=== PATIENT | male | born 1940 | race Caucasian/White ===

== ENCOUNTER 2017-09-26 06:11 | Inpatient (IN) | payer MEDICARE ==
[2017-09-26] VITALS (13 sets, daily range): BP systolic 128–153; BP diastolic 76–85; PULSE 52–78; RESP 19–20; TEMP 97.8–98.5; O2SAT 96–100
[~2017-09-26] VITALS: Ht 177.8 cm; Wt 63.0 kg
[2017-09-26] MEDS: CHLORHEXIDINE GLUCONATE 2 % 1 PACK (2 CLOTHS) TOPICAL PRN (06:00)
[2017-09-26] MEDS ORDERED: ASPI-516 CHEW (06:45)
[2017-09-26] MEDS ORDERED: MAGN500T2 PO (06:45)
[2017-09-26] MEDS ORDERED: VITA100T65 PO (06:45)
[2017-09-26] MEDS ORDERED: APIX5TAB PO (06:45)
[2017-09-26] MEDS ORDERED: LISI-519 PO (06:45)
[2017-09-26] MEDS ORDERED: OCUVTAB4 PO (06:45)
[2017-09-26] MEDS ORDERED: GLUC500T4 PO (06:45)
[2017-09-26] MEDS ORDERED: TAMS0.4C4 (06:45)
[2017-09-26] MEDS ORDERED: FERR325T18 PO (06:45)
[2017-09-26] MEDS ORDERED: MULTTAB67 PO (06:45)
[2017-09-26] MEDS ORDERED: CARV3.12 PO (06:45)
[2017-09-26] MEDS ORDERED: ATOR40TA16 PO (06:45)
[2017-09-26] MEDS ORDERED: NEXI40CA PO (06:45)
[2017-09-26] MEDS ORDERED: ceFAZolin 2 GM PREMIX 50 ML IV SCH (07:45)
[2017-09-26] MEDS ORDERED: METOPROLOL TARTRATE 25 MG TAB PO SCH (07:45)
[2017-09-26] MEDS ORDERED: PAPAVERINE 60 MG-NITROGLYCERIN 100 MCG-DILTIAZEM 100 MG in NS 100 ML IRRIGATION SCH ×4 (07:45)
[2017-09-26] MEDS ORDERED: POVIDONE IODINE 5% (ANTISEPSIS KIT) 4 APPLICATIONS EACH NARE PRN (07:45)
[2017-09-26] MEDS ORDERED: PAPAVERINE INJ 60 MG, NITROGLYCERIN INJ 100 MCG, VERAPAMIL INJ 100 MG in SODIUM CHLORID... IRRIGATION SCH (07:45)
[2017-09-26] MEDS ORDERED: INSULIN REGULAR 100 UNITS in NS 100 ML IV PRN (07:45)
[2017-09-26] MEDS ORDERED: CEFAZOLIN 500 MG in NS IRR BTL 500 ML IRRIGATION SCH (07:45)
[2017-09-26] MEDS ORDERED: LACTATED RINGER'S 1000 ML IV PRN (07:45)
[2017-09-26] MEDS ORDERED: METOPROLOL TARTRATE 25 MG TAB PO PRN (07:45)
[2017-09-26] MEDS ORDERED: CHLORHEXIDINE GLUCONATE 4% SOLN 120 ML BTL TOPICAL SCH (07:45)
[2017-09-26] MEDS ORDERED: SODIUM CHLORID 0.9% 500 ML IV PRN (07:45)
[2017-09-26] MEDS ORDERED: INSULIN HUMAN REGULAR 1,000 UNITS/10 ML VIAL SQ PRN (07:45)
[2017-09-26] MEDS ORDERED: fentaNYL CITRATE 250 MCG/5 ML AMP ONE (07:53)
[2017-09-26] MEDS ORDERED: MIDAZOLAM HCL 5 MG/ML VIAL (1 ML) ONE (07:53)
[2017-09-26] MEDS ORDERED: HEPARIN SODIUM - SQ 10,000 UNITS/ML VIAL ONE (08:00)
[2017-09-26] MEDS ORDERED: VANCOMYCIN HCL 1000 MG VIAL ONE (08:01)
[2017-09-26] MEDS ORDERED: ceFAZolin 2 GM PREMIX 0 ML ONE (08:01)
--- NOTE | 2017-09-26 08:01 | PD.CAR.PN ---
CVT Progress Note Subjective/Hospital Course: 77/ male seen in clinic by Dr Herrmann , presented with episode of syncope . Underwent evaluation including echo which revealed moderate mitral insuff, severe LV dysfunction with EF 30%. Cardiac cath showed patent stent in LCX critical stenosis of the LAD and RCA PMH: Afib, anemia , BPH, CHF, COPD, GERD, HTN, Hypothyroidism pt electively admitted for MVR/ CABG Objective: Vital Signs Date Time Temp Pulse Resp B/P (MAP) Pulse Ox O2 Delivery O2 Flow Rate FiO2 09/26/17 07:17 97.9 62 24 153/81 (105) 100 Jo Schilling Sep 26, 2017 08:01
[2017-09-26] MEDS ORDERED: CUSTODIOL HTK IRR SOLN 2,000 ML ONE (08:34)
[2017-09-26] MEDS ORDERED: MANNITOL INJ 100 ML ONE (08:35)
[2017-09-26] MEDS ORDERED: SODIUM BICARBONATE 8.4% INJ 100 ML ONE (08:35)
[2017-09-26] MEDS ORDERED: HEPARIN SODIUM - IV 10,000 UNITS/10 ML VIAL ONE (08:36)
[2017-09-26] MEDS ORDERED: ALBUMIN 25% INJ 50 ML IV ONE (08:36)
[2017-09-26] MEDS ORDERED: CALCIUM CHLORIDE 10% SOLN 1 GRAM/10 ML SYR ONE (08:36)
[2017-09-26] MEDS ORDERED: SUGAMMADEX SODIUM 200 MG/2 ML VIAL IV PUSH ONE (09:52)
[2017-09-26] MEDS ORDERED: DO NOT ADM ANY ANTICOAGULANT DRUGS PRN (10:11)
[2017-09-26] MEDS ORDERED: SOD PHOSPHATE/SOD BIPHOSPHATE (ADULT) ENEMA 133ML RECTAL PRN (10:30)
[2017-09-26] MEDS ORDERED: GLUCAGON 1 MG/ML VIAL OTHER PRN (10:30)
[2017-09-26] MEDS ORDERED: BISACODYL 10 MG SUPP RECTAL PRN (10:30)
[2017-09-26] MEDS ORDERED: DEXTROSE 50% IN WATER 50 ML VIAL(D50) IV PUSH PRN (10:30)
--- NOTE | 2017-09-26 10:38 | PD.OP ---
cc: Rafael Herrmann MD Operative Report Date of Surgery: Sep 26, 2017 Preoperative Diagnosis: Postoperative Diagnosis: Procedure: 1. Aborted Mitral/CABG Procedure 2. Transthoracic ECHO Surgeon: Rafael Herrmann Auditing Coder(s): A Wesley Operation and Findings: PREPROCEDURE DIAGNOSES 1. Moderate Mitral Insufficiency 2. Coronary Artery Disease 3. Moderate left Ventricular Dysfunction POSTPROCEDURE DIAGNOSES 1. Mild Mitral Insufficiency 2. Coronary Artery Disease 3. Moderate left Ventricular Dysfunction 4. Esophageal Stricture SURGICAL PROCEDURE 1. Aborted Mitral/CABG Procedure 2. Transthoracic ECHO SURGEON Rafael Herrmann MD TOOL MACHINE SET UP OPERATOR Pepper Guzmán, PAC ANESTHESIA General endotracheal OUTSIDE PRODUCTION INSPECTOR Ajay Fraire, ACCOUNTING SYSTEM EXPERT Jose Hall MD PREPARATION [employer]. COUNTS Needle, sponge, and instrument counts were correct. DRAINS None COMPLICATIONS None. INDICATIONS FOR PROCEDURE The patient is a 77-year-old male presenting with syncope. Patient was noted to have two-vessel coronary artery disease and MR. The patient is being brought to the operating room for surgical therapy. PROCEDURE Patient was brought to the operating room and placed supine on the OR table. Following the induction of adequate general endotracheal anesthesia and placement of appropriate monitoring devices, intraoperative JOSE was attempted without success. It appears that the patient has an esophageal stricture. We were able to pass an orogastric tube with aspiration of bilious contents, but unable to advance the JOSE probe into the esophagus. A transthoracic ECHO was then performed by Dr. Jake Vaca. ECHO revealed mild to moderate MR with no pulmonary vein reversal of flow by doppler analysis. The left atrium was also noted to be of normal dimensions, measuring 4.5 cm in greatest dimension. Given the above findings, his significant frailty and the fact that the LAD is easily stentable, I decided to have a lengthy conversation with the patient's and son. They both agreed to stop the operation at this point to further discuss the options with him and likely proceed with PCI to the LAD and possibly RCA. No incision was made and the patient was awaken from general anesthesia and transferred to the PACU in stable condition. Rafael Herrmann MD Sep 26, 2017 10:38
[2017-09-26] MEDS ORDERED: SODIUM BICARBONATE 8.4% INJ 50 MEQ/50 ML SYR IV ONE (12:00)
[2017-09-26] MEDS ORDERED: PHENYLEPH/NS 1000 MCG/10 ML SYR IV ONE (12:00)
[2017-09-26] MEDS ORDERED: TRANEXAMIC ACID INJ 1,000 MG/10 ML AMP IV ONE (12:00)
[2017-09-26] MEDS ORDERED: MAGNESIUM SULFATE 1 GM/2 ML VIAL IV ONE (12:00)
[2017-09-26] MEDS ORDERED: CALCIUM CHLORIDE 10% SOLN 1 GRAM/10 ML SYR IV ONE (12:00)
[2017-09-26] MEDS ORDERED: PHENYLEPHRINE HCL 10 MG/ML VIAL IV ONE (12:00)
[2017-09-26] MEDS ORDERED: DOPamine 800 MG/500 ML INJ 500 ML IV ONE (12:00)
[2017-09-26] MEDS ORDERED: LIDOCAINE HCL 1% PF 5 ML SYRINGE OTHER ONE (12:00)
[2017-09-26] MEDS ORDERED: VECURONIUM BROMIDE 10 MG VIAL IV ONE (12:00)
[2017-09-26 13:49] LABS: HEMATOCRIT 31.4 % (39.0-51.0); HEMOGLOBIN 10.8 GM/DL (13.0-17.0); MEAN CORPUSCULAR HEMOGLOBIN 32.4 PG (27.0-34.0); MEAN CORPUSCULAR HGB CONC 34.5 % (32.0-36.0); MEAN PLATELET VOLUME 7.6 FL (7.0-11.0); PLATELET COUNT 364 TH/MM3 (150-450); RED BLOOD COUNT 3.34 MIL/MM3 (4.50-5.90); RED CELL DISTRIBUTION WIDTH 13.9 % (11.6-17.2); WHITE BLOOD COUNT 7.8 TH/MM3 (4.0-11.0)
[2017-09-26 13:55] LABS: PROTHROMBIN TIME - PATIENT 10.5 SEC (9.8-11.6)
[2017-09-26 14:12] LABS: BICARBONATE 27.3 MEQ/L (21.0-32.0); CALCIUM 8.3 MG/DL (8.5-10.1); CREATININE 0.68 MG/DL (0.60-1.30)
[2017-09-26] MEDS: FERROUS SULFATE 325 MG (65 MG ELEMENTAL IRON) TAB PO SCH (17:10)
[2017-09-26] MEDS: DOCUSATE SODIUM 100 MG CAP PO SCH (20:41)
[2017-09-26] MEDS: CARVEDILOL 3.125 MG TAB PO SCH (20:42)
[2017-09-26] MEDS: APIXABAN 5 MG TABLET PO SCH (20:42)
[2017-09-26] MEDS ORDERED: ATORVASTATIN 40 MG TAB PO SCH (21:00)
[2017-09-26] MEDS ORDERED: SENNOSIDES 8.6 MG TAB PO SCH (21:00)
[2017-09-26] MEDS ORDERED: TAMSULOSIN HCL 0.4 MG CAP PO SCH (21:00)
[2017-09-26] MEDS ORDERED: ACETAMINOPHEN/HYDROcodone 325 MG/5 MG TAB PO PRN (21:30)
[2017-09-26] MEDS: RESP: ALBUTEROL 2.5 MG/IPRATROPIUM 0.5 MG NEB (SCH) NEB (21:48)
[2017-09-27] VITALS (13 sets, daily range): BP systolic 135–150; BP diastolic 62–71; PULSE 52–82; RESP 18; TEMP 98.1–98.3; O2SAT 98–99
[2017-09-27] MEDS: RESP: ALBUTEROL 2.5 MG/IPRATROPIUM 0.5 MG NEB (SCH) NEB (07:37)
--- NOTE | 2017-09-27 08:39 | HHI.DS ---
Discharge Summary Admission Date Sep 26, 2017 at 06:11 Discharge Date: Sep 27, 2017 Admitting Diagnosis (1) CAD in [place] artery Diagnosis: Principal ICD Codes: I25.10 - Atherosclerotic heart disease of [place] coronary artery without angina pectoris CBC/BMP: 09/26/17 1324 09/26/17 1324 Significant Findings Laboratory Tests Test 09/26/17 13:24 Red Blood Count 3.34 MIL/MM3 (4.50-5.90) Hemoglobin 10.8 GM/DL (13.0-17.0) Hematocrit 31.4 % (39.0-51.0) Calcium Level 8.3 MG/DL (8.5-10.1) Hospital Course Subjective/Hospital Course: 77/ male seen in clinic by Dr Herrmann , presented with episode of syncope . Underwent evaluation including echo which revealed moderate mitral insuff, severe LV dysfunction with EF 30%. Cardiac cath showed patent stent in LCX critical stenosis of the LAD and RCA PMH: Afib, anemia , BPH, CHF, COPD, GERD, HTN, Hypothyroidism pt electively admitted for MVR/ CABG 09/26 CABG/MVR cancelled due to esophageal stricture and mild MR Plans for PCI to LAD 09/27 D/C home to F/u with Dr. Grimaldo Pt Condition on Discharge: Good Discharge Disposition: Discharge Home Discharge Instructions DIET: Follow Instructions for: Heart Healthy Diet Activities you can perform: Regular-No Restrictions Follow up Referrals: Cardiology - 2 Weeks PCP Follow-up - 2 Weeks Continued Medications: Apixaban (Eliquis) 5 Mg Tab 5 MG PO BID for Blood Clot Prevention, #60 TAB 0 Refills Aspirin (Aspirin) 81 Mg Chew 81 MG CHEW DAILY, TAB 0 Refills Atorvastatin (Atorvastatin) 40 Mg Tab 40 MG PO HS for Cholesterol Management, #30 TAB 0 Refills Carvedilol (Carvedilol) 3.125 Mg Tab 3.125 MG PO BID, #60 TAB [address] (Nexium) 40 Mg Capdr 40 MG PO DAILY, CAP 0 Refills Ferrous Sulfate (Ferrous Sulfate) 325 Mg (65 Mg Iron) Tablet 325 MG PO BIDPC for Nutritional Supplement, #60 TAB 0 Refills Glucosamine-Chondroitin (Glucosamine-Chondroitin) 500-400 Mg Tab 1 TAB PO DAILY for Herbal Supplements, TAB 0 Refills Lisinopril (Lisinopril) 5 Mg Tab 5 MG PO DAILY for Blood Pressure Management, #30 TAB 0 Refills Magnesium Oxide (Magnesium Oxide) 500 Mg Tab 500 MG PO DIRECTED, TAB 0 Refills Multiple Vitamin (Multiple Vitamin) 1 Tab 1 TAB PO DAILY for Nutritional Supplement, TAB 0 Refills Multiple Vitamins W/ Minerals (Preservision Areds) 1 Tab 1 TAB PO DAILY for Nutritional Supplement, TAB 0 Refills Tamsulosin (Tamsulosin) 0.4 Mg Cap 0.4 MG HS for Manage Prostate Problems, #30 CAP 0 Refills Vitamin E (Vitamin E) 100 Unit Tab 100 UNITS PO DAILY for Nutritional Supplement, TAB 0 Refills Rafael Herrmann MD Sep 27, 2017 08:39
[2017-09-27] MEDS: FERROUS SULFATE 325 MG (65 MG ELEMENTAL IRON) TAB PO SCH (08:49)
[2017-09-27] MEDS: CARVEDILOL 3.125 MG TAB PO SCH (08:49)
[2017-09-27] MEDS: DOCUSATE SODIUM 100 MG CAP PO SCH (08:49)
[2017-09-27] MEDS: APIXABAN 5 MG TABLET PO SCH (08:49)
[2017-09-27] MEDS ORDERED: MULTIVITAMINS/MINERALS THERAPEUTIC TAB PO SCH (09:00)
[2017-09-27] MEDS ORDERED: MAGNESIUM HYDROXIDE SUSP 30 ML CUP PO SCH (09:00)
[2017-09-27] MEDS ORDERED: NON-FORMULARY DRUG (Glucosamine-Chondroitin 1 TAB) PO SCH (09:00)
[2017-09-27] MEDS ORDERED: ASPIRIN 81 MG CHEW TAB CHEW SCH (09:00)
[2017-09-27] MEDS ORDERED: LISINOPRIL 5 MG TAB PO SCH (09:00)
[2017-09-27] MEDS ORDERED: POLYETHYLENE GLYCOL 17 GM PKG PO SCH (09:00)
[2017-09-27] MEDS ORDERED: NON-FORMULARY DRUG (Multiple Vitamins W/ Minerals (Preservision Areds) 1 TAB) PO SCH (09:00)
== END 2017-09-27 10:29 | disposition home or self-care (01) | DRG 303 ==
LOC: HSDI 06:11 → HCPC 13:40
PROVIDERS: ADMIT Thoracic Surgery (Cardiothoracic Vascular Surgery); ATTEND Thoracic Surgery (Cardiothoracic Vascular Surgery)
PROC: 0CJ Mouth and Throat, Inspection (ICD-10-PCS; principal; 2017-09-26 08:33)
DX: I25.10 Atherosclerotic heart disease of native coronary artery without angina pectoris (principal); I48.91 Unspecified atrial fibrillation; J44.9 Chronic obstructive pulmonary disease, unspecified; I50.9 Heart failure, unspecified; I11.0 Hypertensive heart disease with heart failure; R54 Age-related physical debility; K22.2 Esophageal obstruction; R55 Syncope and collapse; I34.0 Nonrheumatic mitral (valve) insufficiency; E03.9 Hypothyroidism, unspecified; K21.9 Gastro-esophageal reflux disease without esophagitis; N40.0 Benign prostatic hyperplasia without lower urinary tract symptoms; D64.9 Anemia, unspecified; Z95.5 Presence of coronary angioplasty implant and graft; Z79.82 Long term (current) use of aspirin; Z79.01 Long term (current) use of anticoagulants; Z90.49 Acquired absence of other specified parts of digestive tract; Z88.8 Allergy status to other drugs, medicaments and biological substances; Z87.891 Personal history of nicotine dependence; Z53.09 Procedure and treatment not carried out because of other contraindication
CPT/HCPCS: 76937; 80048; 85027; 85610; 86850; 86900; 86901; 86920; 93318; 94640; 94664; 94667; 99211; G0463; J0690; J1265; J1644; J2150; J2250; J2370; J3010; J3370; J3475; J7120; P9047